=== PATIENT | female | born 1995 | race Caucasian/White ===

== ENCOUNTER → 2020-09-14 13:12 | Outpatient (CLI) | payer OTHER, SELFPAY ==
--- NOTE | 2020-09-14 13:17 | US_ITS ---
PROCEDURE: US PELVIC CLINICAL INDICATION: INGUINAL LYMPHADENOPATHY COMPARISON: No exams were available for comparison FINDINGS: In the left inguinal area there is a 2 x 2 x 0.6 cm lymph node with additional smaller nodes present as well. In the right inguinal area there is a 2.6 x 0.5 by 1.4 cm node. Other smaller nodes are also present. No abscess or other significant anomaly. IMPRESSION: Mildly prominent bilateral inguinal lymph nodes Dictated by: Slim Torres MD 09/14/2020 17:40 Slim Torres MD in [facility] 09/14/2020 17:40
== END ==
PROVIDERS: PCP Family Medicine; Visit Provider Nurse Practitioner
DX: R59.0 Localized enlarged lymph nodes (principal)
CPT/HCPCS: 76856

== ENCOUNTER → 2020-09-21 08:59 | Outpatient (CLI) | payer OTHER, SELFPAY ==
--- NOTE | 2020-09-21 09:08 | CT_ITS ---
PROCEDURE: CT ABDOMEN PELVIS W CON CLINICAL INDICATION: PELVIC PAIN,LYMPHADENOPATHY, bilateral inguinal lymph node tenderness swelling marked with bbs tenderness below umbilical COMPARISON: No exams were available for comparison TECHNIQUE: IV Contrast: 75ML Isovue 370 Oral Contrast None Axial images obtained with sagittal and coronal reformats. All CT scans at the facility use one or more dose reduction, viz: automated exposure control, ma/kV adjustment per patient size (including targeted exams where dose is matched to indication, i.e. head), or iterative reconstruction technique. FINDINGS: LOWER THORAX: No acute finding ABDOMEN & PELVIS: The liver, spleen, pancreas, adrenal glands, and kidneys show no acute finding. No intestinal obstruction or free air. No evidence of appendicitis or diverticulitis. No pelvic mass, abnormal fluid collection, or focal inflammatory change of the pelvis. No acute bony anomalies. IMPRESSION: Dictated by: Slim Torres MD 09/21/2020 19:34 Slim Torres MD in [facility] 09/25/2020 20:06
== END ==
PROVIDERS: PCP Family Medicine; Visit Provider Nurse Practitioner
DX: R59.0 Localized enlarged lymph nodes (principal); R10.2 Pelvic and perineal pain
CPT/HCPCS: 74177; Q9967

== ENCOUNTER → 2020-10-24 12:59 | Outpatient (CLI) | payer OTHER, SELFPAY ==
[2020-10-24 14:30] LABS: Basophils % 0.7 % (0.1-2.0); Eosinophils # 0.1 K/mm3 (0.0-0.4); Hematocrit 42.9 % (37.0-47.0); Hemoglobin 14.2 g/dL (12.2-16.2); Lymphocytes # 1.2 K/mm3 (0.7-4.5); Lymphocytes % 19.4 % (10-50); Mean Corpuscular HGB Conc 33.2 g/dL (31.8-35.4); Mean Corpuscular Hemoglobin 30.9 pg (27.0-31.2); Mean Platelet Volume 7.9 fl (7.4-10.4); Monocytes # 0.2 K/mm3 (0.1-1.0); Monocytes % 3.9 % (1.7-9.3); Neutrophils # 4.6 K/mm3 (1.8-7.8); Neutrophils % 75.1 % (37.0-80.0); Platelet Count 248 K/mm3 (142-424); Red Blood Count 4.62 M/mm3 (4.20-5.40); White Blood Count 6.1 K/mm3 (4.8-10.8)
[2020-10-24 19:27] LABS: Strep Scrn Group A (Rapid) Negative (Negative)
== END ==
PROVIDERS: PCP Family Medicine; Visit Provider Nurse Practitioner
DX: J02.9 Acute pharyngitis, unspecified (principal)
CPT/HCPCS: 36415; 85025; 87430

== ENCOUNTER → 2021-01-13 15:11 | Outpatient (CLI) | payer OTHER, SELFPAY | PROVIDERS: PCP Family Medicine; Visit Provider Otolaryngology | DX: Z11.52 Encounter for screening for COVID-19 (principal); U07.1 COVID-19; R43.9 Unspecified disturbances of smell and taste | CPT/HCPCS: U0003 ==

== ENCOUNTER → 2021-05-25 13:13 | Outpatient (CLI) | payer OTHER, SELFPAY ==
[2021-05-25 14:50] LABS: Adenovirus,PCR Not Detected (NotDetected); Bordetella Pertussis Not Detected (NotDetected); Chlamydophila Pneumoniae, PCR Not Detected (NotDetected); Coronavirus 19, PCR Not Detected (NotDetected); Coronavirus 229E Not Detected (NotDetected); Coronavirus NL63 Not Detected (NotDetected); Coronavirus OC43 Not Detected (NotDetected); Coronovirus HKU1,PCR Not Detected (NotDetected); Human Metapneumovirus Not Detected (NotDetected); Influenza A, PCR Not Detected (NotDetected); Influenza AH1, 2009 Not Detected (NotDetected); Influenza AH1, PCR Not Detected (NotDetected); Influenza AH3,PCR Not Detected (NotDetected); Influenza B, PCR Not Detected (NotDetected); Mycoplasma Pneumoniae, PCR Not Detected (NotDetected); Parainfluenza 1, PCR Not Detected (NotDetected); Parainfluenza 2, PCR Not Detected (NotDetected); Parainfluenza 3, PCR Not Detected (NotDetected); Parainfluenza 4, PCR Not Detected (NotDetected); Respiratory Syncytial Virus Not Detected (NotDetected)
[2021-05-25 14:55] LABS: Basophils # 0.1 K/mm3 (0-0.2); Basophils % 0.9 % (0.1-2.0); Eosinophils # 0.1 K/mm3 (0.0-0.4); Eosinophils % 1.5 % (0.1-12.0); Hematocrit 42.2 % (37.0-47.0); Lymphocytes % 15.3 % (10-50); Mean Corpuscular HGB Conc 33.1 g/dL (31.8-35.4); Mean Corpuscular Hemoglobin 30.2 pg (27.0-31.2); Mean Corpuscular Volume 91.2 fl (81-99); Mean Platelet Volume 8.2 fl (7.4-10.4); Monocytes # 0.2 K/mm3 (0.1-1.0); Monocytes % 3.9 % (1.7-9.3); Neutrophils # 4.9 K/mm3 (1.8-7.8); Neutrophils % 78.4 % (37.0-80.0); Platelet Count 213 K/mm3 (142-424); Red Blood Count 4.63 M/mm3 (4.20-5.40); Red Cell Distribution Width 12.6 % (11.5-17.5); White Blood Count 6.3 K/mm3 (4.8-10.8)
[2021-05-27 02:23] LABS: Rhinovirus/Enterovirus Detected (NotDetected)
== END ==
PROVIDERS: PCP Family Medicine; Visit Provider Physician Assistant
DX: Z20.822 Contact with and (suspected) exposure to COVID-19 (principal); B34.1 Enterovirus infection, unspecified
CPT/HCPCS: 36415; 85025; 87581; 87633; 87798

== ENCOUNTER → 2022-11-06 23:00 | Outpatient (CLI) | payer OTHER, SELFPAY ==
[2022-11-06 21:59] LABS: Alanine Aminotransferase 17 U/L (12-78); Albumin Level 4.1 g/dl (3.5-5.0); Albumin/Globulin Ratio 1.7 (1.1-1.8); Alkaline Phosphatase 88 U/L (38-126); Anion Gap 9.7 mEq/L (5-15); Aspartate Amino Transferase 23 U/L (14-36); Bilirubin,Total 0.2 mg/dl (0.2-1.3); Blood Urea Nitrogen 14 mg/dl (7-17); Calcium 8.7 mg/dl (8.4-10.2); Carbon Dioxide 29 mmol/L (22.0-30.0); Chloride 106 mmol/L (98-107); Estimated Glomerular Filt Rate 119 ml/min (>60); GFR (African American) 144 ML/MIN (>60); Globulin 2.4 g/dL (1.3-3.2); Glucose 85 mg/dl (74-100); Potassium 3.7 mmoL/L (3.5-5.1); Sodium 141 mmol/L (136-145); Total Protein,Serum 6.5 g/dl (6.3-8.2)
[2022-11-06 22:28] LABS: Thyroid Stimulating Hormone 2.96 uIU/mL (0.465-4.68)
[2022-11-06 22:59] LABS: 25-OH Vitamin D, Total 38.4 ng/mL (30-100)
== END ==
PROVIDERS: PCP Nurse Practitioner; Visit Provider Nurse Practitioner
DX: E55.9 Vitamin D deficiency, unspecified (principal); F41.9 Anxiety disorder, unspecified
CPT/HCPCS: 80053; 82306; 84443

== ENCOUNTER → 2023-07-09 08:19 | Outpatient (CLI) | payer OTHER, SELFPAY ==
[2023-07-09 19:22] LABS: Alanine Aminotransferase 15 U/L (12-78); Albumin Level 4.4 g/dl (3.5-5.0); Albumin/Globulin Ratio 1.7 (1.1-1.8); Alkaline Phosphatase 59 U/L (38-126); Amylase 71 U/L (30-110); Anion Gap 11.1 mEq/L (5-15); Aspartate Amino Transferase 19 U/L (14-36); Bilirubin,Total 0.2 mg/dl (0.2-1.3); Blood Urea Nitrogen 14 mg/dl (7-17); Calcium 9.3 mg/dl (8.4-10.2); Carbon Dioxide 25 mmol/L (22.0-30.0); Chloride 107 mmol/L (98-107); Estimated Glomerular Filt Rate 119 ml/min (>60); GFR (African American) 144 ML/MIN (>60); Globulin 2.6 g/dL (1.3-3.2); Glucose 82 mg/dl (74-100); Lipase 105 U/L (23-300); Potassium 4.1 mmoL/L (3.5-5.1); Sodium 139 mmol/L (136-145)
[2023-07-09 19:23] LABS: Basophils % 0.7 % (0.1-2.0); Eosinophils # 0.1 K/mm3 (0.0-0.4); Eosinophils % 0.9 % (0.1-12.0); Hematocrit 44.4 % (37.0-47.0); Hemoglobin 14.8 g/dL (12.2-16.2); Lymphocytes # 1.3 K/mm3 (0.7-4.5); Mean Corpuscular HGB Conc 33.4 g/dL (31.8-35.4); Mean Corpuscular Hemoglobin 30.8 pg (27.0-31.2); Mean Corpuscular Volume 92.3 fl (81-99); Mean Platelet Volume 8.4 fl (7.4-10.4); Monocytes # 0.2 K/mm3 (0.1-1.0); Monocytes % 3.3 % (1.7-9.3); Neutrophils # 3.6 K/mm3 (1.8-7.8); Platelet Count 230 K/mm3 (142-424); Red Blood Count 4.81 M/mm3 (4.20-5.40); Red Cell Distribution Width 13.2 % (11.5-17.5); White Blood Count 5.1 K/mm3 (4.8-10.8)
[2023-07-09 19:53] LABS: Thyroid Stimulating Hormone 0.69 uIU/mL (0.465-4.68)
== END ==
PROVIDERS: PCP Nurse Practitioner; Visit Provider Nurse Practitioner
DX: R10.13 Epigastric pain (principal)
CPT/HCPCS: 80053; 82150; 83690; 84443; 85025

== ENCOUNTER → 2023-07-25 07:41 | Outpatient (CLI) | payer OTHER, SELFPAY ==
--- NOTE | 2023-07-25 07:41 | US_ITS ---
FINAL REPORT CLINICAL HISTORY: postprandial epigastric pain COMPARISON: None FINDINGS: Sonographic images of the right upper quadrant were obtained. The pancreas is partially obscured.The liver has an unremarkable appearance.The gallbladder appears normal without evidence of gallstones.There is no evidence of biliary ductal dilatation.The common duct measures 2 mm. Limited images of the right kidney are unremarkable. IMPRESSION: Unremarkable right upper quadrant ultrasound. Reviewed, Interpreted and Dictated by Ricky Rivera III, MD Transcribed by Leyda Samson Authenticated and [facility]
== END ==
PROVIDERS: PCP Nurse Practitioner; Visit Provider Nurse Practitioner
DX: R10.13 Epigastric pain (principal)
CPT/HCPCS: 76705

== ENCOUNTER 2024-07-29 13:39 | Outpatient (CLI) | payer OTHER, SELFPAY ==
[2024-07-29 18:28] LABS: Basophils # 0.1 K/mm3 (0-0.2); Basophils % 1.4 % (0.1-2.0); Eosinophils # 0.1 K/mm3 (0.0-0.4); Hematocrit 42.9 % (37.0-47.0); Hemoglobin 14.3 g/dL (12.2-16.2); Lymphocytes # 1.2 K/mm3 (0.7-4.5); Lymphocytes % 34.6 % (10-50); Mean Corpuscular HGB Conc 33.4 g/dL (31.8-35.4); Mean Corpuscular Hemoglobin 30.2 pg (27.0-31.2); Mean Corpuscular Volume 90.4 fl (81-99); Mean Platelet Volume 7.7 fl (7.4-10.4); Monocytes # 0.2 K/mm3 (0.1-1.0); Neutrophils % 56.9 % (37.0-80.0); Platelet Count 260 K/mm3 (142-424); Red Blood Count 4.74 M/mm3 (4.20-5.40); Red Cell Distribution Width 12.9 % (11.5-17.5); White Blood Count 3.6 K/mm3 (4.8-10.8)
[2024-07-29 19:02] LABS: Alanine Aminotransferase 11 U/L (12-78); Albumin/Globulin Ratio 1.9 (1.1-1.8); Alkaline Phosphatase 55 U/L (38-126); Anion Gap 9.8 mEq/L (5-15); Aspartate Amino Transferase 18 U/L (14-36); Bilirubin,Total 0.4 mg/dl (0.2-1.3); Blood Urea Nitrogen 14 mg/dl (7-17); Calcium 9.5 mg/dl (8.4-10.2); Carbon Dioxide 28 mmol/L (22.0-30.0); Chloride 108 mmol/L (98-107); Cholesterol 188 mg/dl (140-200); Estimated Glomerular Filt Rate 99 ml/min (>60); GFR (African American) 120 ML/MIN (>60); Globulin 2.1 g/dL (1.3-3.2); Glucose 89 mg/dl (74-100); Potassium 4.8 mmoL/L (3.5-5.1); Sodium 141 mmol/L (136-145); Total Protein,Serum 6.1 g/dl (6.3-8.2); Triglycerides 142 mg/dl (30-150); VLDL Cholesterol 28 mg/dL (0-40)
[2024-07-29 19:25] LABS: Free T4 (Free Thyroxine) 1.15 ng/dl (0.78-2.19)
[2024-07-29 19:28] LABS: 25-OH Vitamin D, Total 41.1 ng/mL (30-100)
[2024-07-29 19:51] LABS: Vitamin B12 204 pg/mL (239-931)
[2024-07-29 19:57] LABS: HDL Cholesterol 63 mg/dl (40-60)
[2024-07-29 20:12] LABS: Direct LDL Cholesterol 109.31 mg/dL (100-129)
[2024-07-29 20:14] LABS: Thyroid Stimulating Hormone 1.32 uIU/mL (0.465-4.68)
== END 2024-07-29 23:59 | disposition home or self-care (01) ==
LOC: LAB.DROPOF 07-30 13:40
PROVIDERS: PCP Nurse Practitioner; Visit Provider Nurse Practitioner
DX: F41.8 Other specified anxiety disorders (principal); E55.9 Vitamin D deficiency, unspecified; Z13.1 Encounter for screening for diabetes mellitus; Z13.220 Encounter for screening for lipoid disorders
CPT/HCPCS: 80050; 80053; 80061; 82306; 82607; 83036; 84439; 84443; 85025

== ENCOUNTER 2025-07-08 15:30 | Outpatient (CLI) | payer OTHER, SELFPAY ==
[2025-07-08 20:24] LABS: Hematocrit 40.4 % (37.0-47.0); Hemoglobin 13.2 g/dL (12.2-16.2); Immature Granulocytes % 0.2 %; Mean Corpuscular HGB Conc 32.7 g/dL (31.8-35.4); Mean Corpuscular Hemoglobin 29.5 pg (27.0-31.2); Mean Corpuscular Volume 90.2 fl (81-99); Nucleated Red Blood Cells % 0 %; Platelet Count 281 K/mm3 (142-424); Red Blood Count 4.48 M/mm3 (4.20-5.40); Red Cell Distribution Width-SD 39.4 fL; White Blood Count 5.4 K/mm3 (4.8-10.8)
[2025-07-08 21:37] LABS: Alanine Aminotransferase 13 U/L (12-78); Albumin Level 4.0 g/dl (3.5-5.0); Albumin/Globulin Ratio 1.7 (1.1-1.8); Alkaline Phosphatase 81 U/L (38-126); Anion Gap 11.4 mEq/L (5-15); Aspartate Amino Transferase 18 U/L (14-36); Bilirubin,Total 0.5 mg/dl (0.2-1.3); Blood Urea Nitrogen 16 mg/dl (7-17); Calcium 9.1 mg/dl (8.4-10.2); Carbon Dioxide 27 mmol/L (22.0-30.0); Chloride 103 mmol/L (98-107); Creatinine,Serum 0.80 mg/dl (0.52-1.04); Estimated Glomerular Filt Rate 84 ml/min (>60); GFR (African American) 102 ML/MIN (>60); Globulin 2.3 g/dL (1.3-3.2); Glucose 52 mg/dl (74-100); Potassium 4.4 mmoL/L (3.5-5.1); Sodium 137 mmol/L (136-145); Total Protein,Serum 6.3 g/dl (6.3-8.2)
[2025-07-08 22:03] LABS: Thyroid Stimulating Hormone 1.58 uIU/mL (0.465-4.68)
[2025-07-08 22:26] LABS: Vitamin B12 > 1000 pg/mL (239-931)
--- OUTSIDE RECORDS SUMMARY | 2025-07-09 02:15 | XMS_ITS | Clinical Summary ---
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 1 04/23/2018 Active acetaminophen (TYLENOL) 325 MG tabletIndicatio ns:Thoracic outlet syndrome Take 2 Tabs (650 mg total) by mouth every 6 hours. 60 Tab 07/11/2018 Active oxyCODONE (ROXICODONE) 5 MG tabletIndicatio ns:Thoracic outlet syndrome Take 1 Tab (5 mg total) by mouth every 6 hours as needed for moderate pain. Days' supply: 5 days. Informed consent not needed. 20 Tab 07/10/2018 Active ibuprofen (MOTRIN) 200 MG tablet Take 3 Tabs (600 mg total) by mouth every 6 hours as needed for moderate pain. 24 Tab 07/11/2018 Active Active Problems Problem Noted Date Diagnosed Date Thoracic outlet syndrome 01/07/2015 Shoulder pain 01/07/2015 Social History Tobacco Use Types Packs/Day Years Used Date Smoking Tobacco: Never Smokeless Tobacco: Never Intimate Partner Violence Answer Date R ecorded If you are in a relationship , do you feel safe in that relationship? Yes 07/31/2018 If you are in a relationship , do you feel safe in that relationship? Not currently in a relationship 07/31/2018 Safety and Environment Answer Date Beto rded Do you have any concerns of physical abuse, sexual abuse, or neglect of your child? No 07/31/2018 Adult hurting you or family (11-18) Not on file 07/31/2018 Someone touched you in a sexual way? (-18) Not on file 07/31/2018 Is someone hurting your or your family? No 07/31/2018 Historical abuse worry Not on file 8 If you have firearms in the home, are they all in locked storage AND unloaded? Not on file 07/31/2018 Comments Unknown Sex and Gender Information Value Date Recorded Sex Assigned at Not on file Legal Sex Female 9:39 AM EDT Gender Identity Not on file Sexual Orientation Not on file Last Filed Vital Signs Vital Sign Reading Time Taken Comments Blood Pressure 96/63 07/11/2018 9:00 AM EDT Pulse 72 07/11/2018 9:00 AM EDT Temperature 36.8 C (98.2 F) 07/11/2018 9:00 AM EDT Respiratory Rate 16 07/11/2018 9:00 AM EDT Oxygen Saturation 99% 07/11/2018 3:14 AM EDT Inhaled Oxygen Concentration - - Weight 51.5 kg (113 lb 8.6 oz) 07/31/2018 8:46 A M EDT Height 162.6 cm (5' 4.02 ) 07/31/2018 8:46 AM ED T Body Mass Index 19.48 07/31/2018 8:46 AM EDT Plan of Treatment Health Maintenance Due Date Last Done Comments MMR IMMUNIZATION (1 of 1 - S tandard series) 1995 DTAP/Tdap/Td IMMUNIZATION (1 - Tdap) 2001 VARICELLA IMMUNIZATION (1 of 2 - 13+ 2-dose series) 2007 HEPATITIS B IMMUNIZATION (1 of 3 - 19+ 3-dose series) 2013 HPV IMMUNIZATION (1 - 3-dose SCDM series) 2021 AMB SEASONAL FLU VACCINE (#1) 05/31/2025 COVID-19 Vaccine ( - 2023-2 5 season) 2025 HIB IMMUNIZATION Aged Out No longer e ligible based on patient's age to complete this topic IPV IMMUNIZATION Aged Out No longer e ligible based on patient's age to complete this topic MCV4 IMMUNIZATION Aged Out No longer eligible based on patient's age to complete this topic MENINGOCOCCAL B VACCINE Aged Out No l onger eligible based on patient's age to complete this topic PNEUMOCOCCAL IMMUNIZATION Aged Out No longer eligible based on patient's age to complete this topic Respiratory Syncytial Virus (RSV) <20mo Aged Out No longer eligible b ased on patient's age to complete this topic Insurance [employer] NON-TRADITIONAL Care 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
== END 2025-07-08 23:59 ==
LOC: LAB.DROPOF 07-09 02:13
PROVIDERS: PCP Nurse Practitioner; Visit Provider Nurse Practitioner
DX: F41.9 Anxiety disorder, unspecified (principal); E53.8 Deficiency of other specified B group vitamins
CPT/HCPCS: 80053; 82607; 84443; 85025